=== PATIENT | female | born 2005 | race African-American/Black ===

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

== ENCOUNTER → 2025-02-08 | Outpatient (REF) | payer BC | LOC: M SFHCPLAZ 16:11 | DX: Z53.9 Procedure and treatment not carried out, unspecified reason (principal) ==

== ENCOUNTER → 2025-02-12 | Outpatient (CLI) | payer BC | LOC: M LAB 09:16 | DX: E55.9 Vitamin D deficiency, unspecified (principal) ==

== ENCOUNTER → 2025-02-17 | Outpatient (REF) | payer BC | LOC: M SFHCPLAZ 00:19 | DX: Z53.9 Procedure and treatment not carried out, unspecified reason (principal) ==

== ENCOUNTER → 2025-05-07 | Outpatient (REF) | payer BC ==
[2025-05-07 19:29] LABS: Trichomonas vaginalis (AMP) NOT DETECTED (NEGATIVE)
[2025-05-07 19:52] LABS: GC DNA AMPLIFICATION NEGATIVE (NEGATIVE)
== END ==
LOC: M SFHCPLAZ 15:40
PROVIDERS: ATTEND Family Medicine
DX: Z20.2 Contact with and (suspected) exposure to infections with a predominantly sexual mode of transmission (principal)